=== PATIENT | male | born 1980 | race Two or more races ===

== ENCOUNTER → 2019-01-05 10:40 | Outpatient (CLI) | payer OTHER | END | disposition home or self-care (01) | LOC: RAD 10:40 | DX: R05 Cough (principal); M54.89 Other dorsalgia ==

== ENCOUNTER 2019-07-26 10:48 | Outpatient (CLI) | payer OTHER | END 2019-07-26 15:00 | disposition home or self-care (01) | LOC: LAB 10:48 | DX: J11.1 Influenza due to unidentified influenza virus with other respiratory manifestations (principal); J06.9 Acute upper respiratory infection, unspecified ==

== ENCOUNTER 2020-04-23 15:36 | Outpatient (CLI) | payer OTHER | END 2020-04-23 15:44 | disposition home or self-care (01) | LOC: TOM 15:36 | PROVIDERS: ATTEND General Practice | DX: Z00.00 Encounter for general adult medical examination without abnormal findings (principal) ==